=== PATIENT | female | born 2000 | race Caucasian/White ===

== ENCOUNTER 2024-01-24 15:58 | Emergency (ER) | payer OTHER, SELFPAY ==
[2024-01-24 16:14] VITALS: BP 104/58; PULSE 92; RESP 18; TEMP 36.6; O2SAT 99
--- NOTE | 2024-01-24 16:26 | ED.URI ---
HPI - URI/Sore Throat General Chief Complaint: Upper Respiratory Infection Stated Complaint: Sinus infection Time Seen by Provider: 01/24/24 16:20 Source: patient and RN notes reviewed Mode of arrival: ambulatory Limitations: no limitations History of Present Illness HPI Narrative: Patient presents today complaining of a 10 day history of congestion, postnasal drip, headache with a 2 day history of facial pain and sinus pressure. She did have a cough at onset, but this has since resolved. Denies fever or shortness of breath. She has tried Mucinex and Tylenol without relief. She is currently . Related Data Home Medications Medication Instructions Recorded Confirmed levonorgestrel 21 mcg/24 hr (up to 1 device intrauterine ONCE 01/24/24 01/24/24 8 years) 52 mg intrauterine device (Mirena) Allergies Allergy/AdvReac Type Severity Reaction Status Date / Time No Known Allergies Allergy Verified 01/24/24 16:11 Review of Systems Review of Systems: CONSTITUTIONAL: Denies body aches, fever, chills, or sweats. EYES: Denies visual changes, redness, or discharge. ENT: Denies rhinorrhea, sore throat, or otalgia.+ congestion, sinus pressure, facial pain, postnasal drip CARDIOVASCULAR: Denies chest pain, palpitations, or edema. RESPIRATORY: Denies cough or dyspnea. GASTROINTESTINAL: Denies abdominal pain, nausea, vomiting, or diarrhea. GENITOURINARY: Denies dysuria or hematuria. SKIN: Denies rash, itching, or wounds. MUSCULOSKELETAL: Denies back pain, joint pain, or myalgia. NEUROLOGIC: Denies headache, numbness, tingling, or weakness. PSYCH: Denies depression or anxiety. PMFSH Comments At time of signature, I have reviewed and agree with nursing past medical, surgical, social and family history unless otherwise noted. Please see nursing chart for further information. There is no relevant family history pertinent to the presenting complaint Exam Narrative: GENERAL: Mildly ill-appearing, well-nourished, and in no acute distress. HEAD: Normocephalic, atraumatic. EYES: EOMI. No redness or drainage. Conjunctivae normal. ENT: Mucous membranes pink and moist. Nares congested. Left nasal turbinates erythematous and swollen. Right turbinates normal. No rhinorrhea. TMs normal bilaterally. Throat normal. Uvula midline. Bilateral frontal and maxillary sinus tenderness. NECK: Normal AROM. Supple. Bilateral tonsillar lymph nodes swollen. CHEST: No respiratory distress. Clear to auscultation. HEART: Regular rate and rhythm. No murmur appreciated. EXTREMITIES: Normal range of motion. No edema. SKIN: Warm, dry, no rash. Capillary refill normal. Normal skin turgor. NEURO: No focal deficits. Alert and oriented x3. Gait steady. PSYCH: Normal affect. No signs of depression or anxiety. Course Course Level of Care: Express Care Visit Vital Signs Vital signs: Vital Signs Temperature 97.8 F 01/24/24 16:14 Pulse Rate 92 01/24/24 16:14 Respiratory Rate 18 01/24/24 16:14 Blood Pressure 104/58 L 01/24/24 16:14 Pulse Oximetry 99 01/24/24 16:14 Oxygen Delivery Room Air 01/24/24 16:14 Temperature 97.8 F 01/24/24 16:14 Pulse Rate 92 01/24/24 16:14 Respiratory Rate 18 01/24/24 16:14 Blood Pressure 104/58 L 01/24/24 16:14 Pulse Oximetry 99 01/24/24 16:14 Oxygen Delivery Room Air 01/24/24 16:14 Reviewed MDM - URI/Sore Throat MDM Narrative Medical decision making narrative: Patient has been diagnosed with sinusitis and will be treated with a course of Augmentin. Anticipatory guidance given Differential Diagnosis Differential diagnosis: Likely upper respiratory infection, sinusitis and viral infection Critical Care Time Critical Care Time Critical Care Time: No Discharge Plan Discharge Clinical Impression: Sinusitis Qualifiers: Sinusitis location: unspecified location Chronicity: acute Recurrence: non-recurrent Qualified Code(s): J01.90 - Acute sinusitis, unspecified Patient Disposition: Home, Self-Care Condition: Stable Instructions: Antibiotic Form, Sinusitis (ED) Additional Instructions: Please take the Augmentin as prescribed until gone. You may continue odmg-prp-wrenqty medication as needed for your symptoms as well. Follow-up with your PCP in 3 days if symptoms are not improving. Prescriptions: New amoxicillin-pot clavulanate 875-125 mg tablet 1 tablet PO Q12H 7 Days Qty: 14 0RF No Action Mirena 21 mcg/24hr (up to 8 yrs) 52 mg Intrauterine Device 1 device INTRAUTERINE ONCE Rx Instructions: as a single dose Follow-up/Referrals: PHYSICIAN,CORPORATE COMMUNICATIONS ASSOCIATE [Primary Care Provider] - Stand Alone Forms: Work/School Release IP Time of Disposition: 16:29
== END 2024-01-24 16:32 | disposition home or self-care (01) ==
PROVIDERS: Emergency Provider Nurse Practitioner
DX: J01.90 Acute sinusitis, unspecified (principal)
CPT/HCPCS: 99203; G0463

== ENCOUNTER 2024-09-06 11:06 | Outpatient (CLI) | payer OTHER, SELFPAY ==
[2024-09-06 11:37] LABS: Basophils Percent Auto 0.6 % (0.2-1.2); Eosinophils Absolute Auto 0.1 K/mm3 (0-0.3); Eosinophils Percent Auto 1.2 % (0-4.4); Hematocrit 39.7 % (37.0-47.0); Hemoglobin 12.9 g/dL (12.0-15.0); Immature Granulocyte Absolute 0.01 K/mm3 (0.00-0.031); Immature Granulocyte Percent A 0.1 % (0-0.5); Lymphocytes Absolute Auto 2.71 K/mm3 (0.9-3.2); Lymphocytes Percent Auto 39.7 % (18.3-44.2); Mean Corpuscular HGB Conc 32.5 g/dl (32-36); Mean Corpuscular Hemoglobin 30.4 pg (26-34); Mean Corpuscular Volume 93.4 fl (80-100); Monocytes Absolute Auto 0.5 K/mm3 (0.1-0.6); Monocytes Percent Auto 7.3 % (2.6-8.5); Neutrophils Absolute Auto 3.5 K/mm3 (1.3-6.7); Neutrophils Percent Auto 51.1 % (45.5-73.1); Platelet Count Result 166 k/mm3 (150-375); Red Blood Count 4.25 M/mm3 (4.2-5.4); White Blood Count 6.8 K/mm3 (4.5-10.0)
[2024-09-06 12:04] LABS: Alanine Aminotransferase 19 U/L (6-35); Albumin Level 4.3 g/dL (3.5-5.1); Alkaline Phosphatase 38 U/L (38-126); Anion Gap 7 mmol/L (4-12); Aspartate Amino Transferase 27 U/L (14-36); Bilirubin,Total 0.5 mg/dL (0.2-1.3); Blood Urea Nitrogen 15 mg/dL (7-17); Calcium 9.4 mg/dL (8.4-10.2); Carbon Dioxide 27 mmol/L (22-30); Chloride 107 mmol/L (98-107); Estimated Glomerular Filt Rate > 60; Glucose 91 mg/dL (65-110); Iron 55 ug/dL (37-170); Sodium 141 mmol/L (137-145); Total Protein 7.4 g/dL (6.3-8.2)
[2024-09-06 12:05] LABS: Percent Iron Saturation 15 % (20-50)
[2024-09-06 12:28] LABS: Thyroid Stimulating Hormone 0.581 uIU/mL (0.465-4.680)
[2024-09-06 12:59] LABS: Folic Acid 10.3 ng/mL (2.76->20)
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
[2024-09-06 14:21] LABS: Free T3 3.19 pg/mL (2.32-6.09); Vitamin D 25 Hydroxy 25.5 ng/mL
== END 2024-09-06 11:07 | disposition home or self-care (01) ==
LOC: ANHLAB 11:07
PROVIDERS: PCP Family Medicine; Visit Provider Nurse Practitioner Family
DX: Z13.1 Encounter for screening for diabetes mellitus (principal); Z13.29 Encounter for screening for other suspected endocrine disorder; R53.83 Other fatigue; E55.9 Vitamin D deficiency, unspecified
CPT/HCPCS: 36415; 80053; 82306; 82607; 82746; 83540; 83550; 84439; 84443; 84481; 85025